=== PATIENT | female | born 1980 | race Caucasian/White ===

== ENCOUNTER 2016-07-07 17:13 | Emergency (ER) | payer OTHER ==
[2016-07-07 18:24] LABS: URINE BILIRUBIN NEGATIVE (NEGATIVE); URINE BLOOD 1+ (NEGATIVE); URINE GLUCOSE (UA) NORMAL (NORMAL); URINE KETONE TRACE (NEGATIVE); URINE LEUKOCYTE ESTERASE 2+ (NEGATIVE); URINE NITRATE NEGATIVE (NEGATIVE); URINE PROTEIN TRACE (NEGATIVE)
[2016-07-07 18:41] LABS: BASO % 0.1 % (0.1-1.2); EOS # 0.1 10_X3_uL (0.0-0.4); EOS % 0.6 % (0.7-5.8); GRAN # 5.5 10_X3_uL (1.6-6.1); GRAN % 62.7 % (34.0-71.1); HEMOGLOBIN 14.2 g/dL (11.2-15.7); LYMPH # 1.8 10_X3_uL (1.2-3.7); LYMPH % 20.1 % (19.3-51.7); MEAN CORPUSCULAR HEMOGLOBIN 30.7 pg (27.0-33.0); MEAN CORPUSCULAR HGB CONC 33.8 g/dL (32.0-36.0); MEAN CORPUSCULAR VOLUME 90.9 fL (79-95); MEAN PLATELET VOLUME 12.5 fl (7.5-11.5); MONO # 1.5 10_X3_uL (0.2-0.9); MONO % 16.5 % (4.7-12.5); PLATELET COUNT 154 x10_3/uL (182-369); RED BLOOD COUNT 4.62 x10_6/uL (3.9-5.2); RED CELL DISTRIBUTION WIDTH 13.3 % (11.7-14.4); WHITE BLOOD COUNT 8.8 x10_3/uL (4.0-10.0)
[2016-07-07 18:51] LABS: URINE BACTERIA FEW (NONE SEEN); URINE RBC 0-5 /[HPF] (0-2)
[2016-07-07 18:52] LABS: URINE TRICHOMONAS MODERATE (NONE SEEN)
[2016-07-07 18:52] LABS: BLOOD UREA NITROGEN 6 mg/dL (7-18); CALCIUM 8.7 mg/dL (8.7-10.7); CARBON DIOXIDE 25 mmol/L (21-32); CREATININE 0.5 mg/dL (0.6-1.3); GLUCOSE,RANDOM 98 mg/dL (70-99); SODIUM 134 mmol/L (136-145)
== END 2016-07-07 20:29 | disposition home or self-care (01) ==
LOC: ER 17:13
PROVIDERS: Emergency Medicine
DX: M54.2 Cervicalgia (principal); J06.9 Acute upper respiratory infection, unspecified; A59.01 Trichomonal vulvovaginitis; N39.0 Urinary tract infection, site not specified; F19.90 Other psychoactive substance use, unspecified, uncomplicated; F17.210 Nicotine dependence, cigarettes, uncomplicated; Z79.1 Long term (current) use of non-steroidal anti-inflammatories (NSAID)
CPT/HCPCS: 36415; 71020; 72125; 80048; 80307; 81001; 81025; 83605; 85025; 87040; 87400; 96374; 96375; 99070; 99284-25